=== PATIENT | male | born 1965 | race Caucasian/White ===

== ENCOUNTER 2020-09-01 21:05 | Emergency (ER) | payer SELFPAY ==
[2020-09-01 21:31] LABS: HEMOGLOBIN 15.8 gm/dl (14.0-17.5); RED BLOOD COUNT 4.63 M/UL (4.20-5.50); WHITE BLOOD COUNT 7.9 K/UL (4.5-11.0)
[2020-09-01 21:49] LABS: BUN/CREATININE RATIO 14 (0-10)
[2020-09-02] MEDS ORDERED: TESSALON PERLE100 MG PO (02:15)
[2020-09-02] MEDS ORDERED: VENTOLIN HFA 66.7 GM INH (02:15)
== END 2020-09-02 03:08 | disposition home or self-care (01) ==
LOC: ER1 21:05
PROVIDERS: Physician Assistant
DX: R07.89 Other chest pain (principal); J06.9 Acute upper respiratory infection, unspecified; E11.9 Type 2 diabetes mellitus without complications; J44.9 Chronic obstructive pulmonary disease, unspecified; F17.210 Nicotine dependence, cigarettes, uncomplicated
CPT/HCPCS: 71045; 80053; 82550; 82553; 83874; 83880; 84484; 85025; 85379; 85610; 85730; 93005; 99285

== ENCOUNTER 2021-09-04 13:24 | Emergency (ER) | payer SELFPAY ==
[~2021-09-04 13:24] MED LIST: TESSALON PERLE100 MG PO; VENTOLIN HFA 66.7 GM INH
[2021-09-04 14:03] LABS: HEMOGLOBIN 15.6 gm/dl (14.0-17.5); RED BLOOD COUNT 4.78 M/UL (4.20-5.50); WHITE BLOOD COUNT 5.8 K/UL (4.5-11.0)
[2021-09-04 14:24] LABS: BUN/CREATININE RATIO 6 (0-10)
[2021-09-04] MEDS ORDERED: BENZONATATE200 MG PO (15:17)
[2021-09-04] MEDS ORDERED: CEFUROXIME500 MG PO (15:17)
[2021-09-04] MEDS ORDERED: PROVENTIL HFA6.7 GM INH (15:17)
== END 2021-09-04 15:30 | disposition home or self-care (01) ==
LOC: ER1 13:24
PROVIDERS: Preventive Medicine Occupational Medicine
DX: J44.1 Chronic obstructive pulmonary disease with (acute) exacerbation (principal); Z20.822 Contact with and (suspected) exposure to COVID-19; E11.9 Type 2 diabetes mellitus without complications; I10 Essential (primary) hypertension; F17.200 Nicotine dependence, unspecified, uncomplicated
CPT/HCPCS: 0240U; 36600; 71045; 80053; 82803; 83605; 83690; 85025; 85652; 86140; 93005; 94664; 96374; 96375; 99285; J0696; J2405; J2930